=== PATIENT | male | born 1980 | race Caucasian/White ===

== ENCOUNTER 2017-10-14 08:42 | Emergency (ER) | payer MEDICAID ==
[~2017-10-14] VITALS: Ht 180.3 cm; Wt 70.0 kg
[2017-10-14 09:01] VITALS: Ht 180.3 cm; Wt 70.0 kg
[2017-10-14 12:29] VITALS: BP 120/69
== END 2017-10-14 12:29 | disposition home or self-care (01) ==
LOC: ED 08:42
DX: S70.12XA Contusion of left thigh, initial encounter (principal); F17.210 Nicotine dependence, cigarettes, uncomplicated; W22.8XXA Striking against or struck by other objects, initial encounter; Y93.89 Activity, other specified; Y92.89 Other specified places as the place of occurrence of the external cause; Y99.8 Other external cause status
CPT/HCPCS: 90715; 99406; Q0092

== ENCOUNTER 2020-01-02 21:55 | Emergency (ER) | payer MEDICAID ==
[~2020-01-02] VITALS: Ht 180.3 cm; Wt 68.5 kg
[2020-01-02 22:07] VITALS: Ht 180.3 cm; Wt 68.5 kg
[2020-01-02 23:13] VITALS: BP 125/78
== END 2020-01-02 23:13 | disposition home or self-care (01) ==
LOC: ED 21:55
DX: S61.512A Laceration without foreign body of left wrist, initial encounter (principal); W31.2XXA Contact with powered woodworking and forming machines, initial encounter; Y93.89 Activity, other specified; Y92.096 Garden or yard of other non-institutional residence as the place of occurrence of the external cause; Y99.8 Other external cause status
CPT/HCPCS: 90715; J2001